=== PATIENT | female | born 1990 | race Caucasian/White ===

== ENCOUNTER 2020-10-19 16:11 | Emergency (ER) | payer MEDICAID ==
[2020-10-19] MEDS ORDERED: Sodium Chloride 0.9% 10 ML Syringe FLUSH PRN (16:18)
--- NOTE | 2020-10-19 18:15 | EDM.PDOC ---
ED HPI GENERAL MEDICAL PROBLEM - General Chief Complaint: General Stated Complaint: co poisoning Time Seen by Provider: 10/19/20 16:20 Source of Information: Reports: Patient History Limitations: Reports: No Limitations - History of Present Illness INITIAL COMMENTS - FREE TEXT/NARRATIVE: 30 year old female Patient presents via BLS ambulance crew with high flow 02 on 15L. CO level 14 when arrived. Patient was in ice [place] with family and felt sick throughout the night and stated they thought they had food poisoning. but by 3 pm Patient had seizure per . Patient alert and oriented on arrival. Patient had baby on her lap. Patient had some bowel and bladder loss She is c/o headache ,located mostly in occipital area ,dull ache ,5/10 non radiating.She had episode of seizure in the ER Denies fever ,chest pain ,cough , sputum , Onset: Today, Sudden Onset Date: 10/19/20 Duration: Hour(s): (4) Location: Reports: Head Quality: Reports: Dull Severity: Moderate Improves with: Reports: None Worsens with: Reports: None Associated Symptoms: Reports: No Other Symptoms ED ROS GENERAL - Review of Systems Review Of Systems: See Below Constitutional: Reports: No Symptoms HEENT: Reports: No Symptoms Respiratory: Reports: No Symptoms, Shortness of Breath, Wheezing, Cough, Sputum Cardiovascular: Reports: Chest Pain, Claudication, Lightheadedness, Syncope. Denies: Dyspnea on Exertion, Edema GI/Abdominal: Reports: No Symptoms, Nausea, Vomiting : Reports: No Symptoms Musculoskeletal: Reports: Other (headache ) Skin: Reports: No Symptoms Neurological: Reports: Dizziness, Headache, Seizure, Syncope ED EXAM, GENERAL - Physical Exam Exam: See Below Exam Limited By: No Limitations General Appearance: Alert, WD/WN, No Apparent Distress Throat/Mouth: Normal Inspection, Normal Lips, Normal Teeth, Normal Gums, Normal Oropharynx, Normal Voice, No Airway Compromise, Other Neck: Supple, Non-Tender, Full Range of Motion Respiratory/Chest: Lungs Clear, Normal Breath Sounds, No Accessory Muscle Use, Chest Non-Tender Cardiovascular: No Edema, No Gallop, No JVD, No Murmur, No Rub GI/Abdominal: Soft, Non-Tender, No Mass Extremities: Normal Range of Motion, Non-Tender Neurological: Alert, CN II-XII Intact Course - Vital Signs Text/Narrative:: 30 year old female came with carbon CO poisoning O2 started at rate 15 liters per minute Jasmin provider was on Camera for consultation Labs ordered She had one episode of seizure in the ER labs are order CO monoxide monitored intermittently Jasmin provider advised to transfer her for hyperbaric therapy - After talking to [facility] , they do not have hyperbaric therapy -I spoke with dr Menezes at [facility] ,he agreed to accept the patient - depending her symptoms ,we decided to transfer her by air - Disposition- The patient was transferred [facility] under care of DR menezes Last Recorded V/S: Last Vital Signs Temp 98 F 10/19/20 16:11 Pulse 88 10/19/20 16:11 Resp 18 10/19/20 16:11 BP 118/71 10/19/20 16:11 Pulse Ox 100 10/19/20 16:11 - Orders/Labs/Meds Orders: Active Orders 24 hr Category Date Time Status Saline Lock Insert [OM.PC] Routine Oth 10/19/20 16:18 Ordered Labs: Laboratory Tests 10/19/20 10/19/20 10/19/20 Range/Units 16:05 16:18 16:18 WBC 15.2 H (4.0-11.0) K/uL RBC 4.29 (3.80-5.80) M/uL Hgb 13.4 (11.5-16.5) g/dL Hct 38.2 (37.0-47.0) % MCV 89 (76-96) fL MCH 31.2 (27.0-32.0) pg MCHC 35.1 H (31.0-35.0) g/dL RDW 11.6 (11.0-16.0) % Plt Count 280 (150-500) K/uL MPV 9.4 (6.0-10.0) fL Neut % (Auto) 85.1 H (45.0-70.0) % Lymph % (Auto) 11.0 L (20.0-40.0) % [place] % (Auto) 3.7 (3.0-10.0) % Eos % (Auto) 0.1 L (1.0-5.0) % Baso % (Auto) 0.1 (0.0-0.5) % Neut # (Auto) 12.93 H (2.00-7.50) K/uL Lymph # (Auto) 1.67 (1.50-4.00) K/uL [place] # (Auto) 0.56 (0.20-0.80) K/uL Eos # (Auto) 0.02 L (0.04-0.40) K/uL Baso # (Auto) 0.02 (0.02-0.10) K/uL POC Cap COHB HHb Yomaira 14.0 H* (0.5-1.5) %COHb Sodium 140 (136-145) mmol/L Potassium 3.8 (3.5-5.1) mmol/L Chloride 103 (98-107) mmol/L Carbon Dioxide 24.8 (21.0-32.0) mmol/L Anion Gap 16.0 H (5.0-15.0) mmol/L BUN 22 (8-26) mg/dL Creatinine 0.99 (0.55-1.02) mg/dL Est Cr Clr Drug Dosing TNP Estimated GFR (MDRD) > 60 (>60) MLS/MIN BUN/Creatinine Ratio 22.2 (6-25) Glucose 98 (74-100) mg/dL Lactic Acid (0.4-2.0) mmol/L Calcium 9.4 (8.5-10.1) mg/dL Total Bilirubin 0.6 (0.0-1.0) mg/dL AST 12 L (15-37) U/L ALT 26 (12-78) U/L Alkaline Phosphatase 84 (46-116) U/L Total Protein 7.7 (6.4-8.2) g/dL Albumin 4.4 (3.4-5.0) g/dL Globulin 3.3 (2.2-4.2) g/dL Albumin/Globulin Ratio 1.3 (0.8-2.0) SARS-CoV-2 RNA ([facility]OR) (NEGATIVE) 10/19/20 10/19/20 Range/Units 16:18 18:04 WBC (4.0-11.0) K/uL RBC (3.80-5.80) M/uL Hgb (11.5-16.5) g/dL Hct (37.0-47.0) % MCV (76-96) fL MCH (27.0-32.0) pg MCHC (31.0-35.0) g/dL RDW (11.0-16.0) % Plt Count (150-500) K/uL MPV (6.0-10.0) fL Neut % (Auto) (45.0-70.0) % Lymph % (Auto) (20.0-40.0) % [place] % (Auto) (3.0-10.0) % Eos % (Auto) (1.0-5.0) % Baso % (Auto) (0.0-0.5) % Neut # (Auto) (2.00-7.50) K/uL Lymph # (Auto) (1.50-4.00) K/uL [place] # (Auto) (0.20-0.80) K/uL Eos # (Auto) (0.04-0.40) K/uL Baso # (Auto) (0.02-0.10) K/uL POC Cap COHB HHb Yomaira (0.5-1.5) %COHb Sodium (136-145) mmol/L Potassium (3.5-5.1) mmol/L Chloride (98-107) mmol/L Carbon Dioxide (21.0-32.0) mmol/L Anion Gap (5.0-15.0) mmol/L BUN (8-26) mg/dL Creatinine (0.55-1.02) mg/dL Est Cr Clr Drug Dosing Estimated GFR (MDRD) (>60) MLS/MIN BUN/Creatinine Ratio (6-25) Glucose (74-100) mg/dL Lactic Acid 1.8 (0.4-2.0) mmol/L Calcium (8.5-10.1) mg/dL Total Bilirubin (0.0-1.0) mg/dL AST (15-37) U/L ALT (12-78) U/L Alkaline Phosphatase (46-116) U/L Total Protein (6.4-8.2) g/dL Albumin (3.4-5.0) g/dL Globulin (2.2-4.2) g/dL Albumin/Globulin Ratio (0.8-2.0) SARS-CoV-2 RNA ([facility]) Negative (NEGATIVE) Meds: Medications Discontinued Medications Generic Name Dose Route Start Last Admin Trade Name Chelita PRN Reason Stop Dose Admin Sodium Chloride 10 ml 10/19/20 16:18 Saline Flush FLUSH ASDIRECTED PRN Keep Vein Open Departure - Departure Time of Disposition: 19:00 Disposition: DC/Tfer to [facility] 02 Clinical Impression: Carbon monoxide poisoning Qualifiers: Encounter type: initial encounter - Discharge Information *PRESCRIPTION DRUG MONITORING PROGRAM REVIEWED*: No *COPY OF PRESCRIPTION DRUG MONITORING REPORT IN PATIENT LEANNA: No Sepsis Event Note (ED) - Focused Exam Vital Signs: Vital Signs Temp Pulse Resp BP Pulse Ox 10/19/20 16:11 98 F 88 18 118/71 100 - Problem List & Annotations (1) Carbon monoxide poisoning SNOMED Code(s): 48221806 Code(s): T58.91XA - TOXIC EFFECT OF CARB MONX FROM UNSP SOURCE, ACC, INIT Status: Acute Priority: Medium Onset Date: ~10/19/20 Annotation/Comment:: transfer for hyperbaric therapy Qualifiers: Encounter type: initial encounter - My Orders Last 24 Hours: My Active Orders 10/19/20 16:18 Saline Lock Insert [OM.PC] Routine - Assessment/Plan Last 24 Hours: My Active Orders 10/19/20 16:18 Saline Lock Insert [OM.PC] Routine
== END 2020-10-19 18:40 ==
LOC: LB.ED 16:11
DX: T58.91XA Toxic effect of carbon monoxide from unspecified source, accidental (unintentional), initial encounter (principal); Z20.822 Contact with and (suspected) exposure to COVID-19
CPT/HCPCS: 36415; 80053; 83605; 85025; 88740; 93005; 99285; 99285-25; A0425; A0429; U0002